=== PATIENT | male | born 1960 | race Caucasian/White ===

== ENCOUNTER 2018-04-27 10:38 | Day surgery (SDC) | payer MEDICARE ==
[2018-04-25 08:28] VITALS: BMI 44.3
[~2018-04-27 10:38] MED LIST: LACTATED RINGERS 1,000 ML IV SCH
[2018-04-27 11:28] VITALS: RESP 16; TEMP 97.2
[2018-04-27] MEDS ORDERED: LIDOCAINE 1% 20 ML VIAL (10MG/ML) FOR IV START INTRADERMA ONE (11:28)
[2018-04-27] MEDS ORDERED: LIDOCAINE 1% INJ 10MG/ML (20 ML MDV) ONE (12:01)
[2018-04-27] MEDS ORDERED: PROPOFOL 10 MG/ML 20 ML VIAL IV ONE (12:01)
--- NOTE | 2018-04-27 12:24 | P.PCN ---
Date of Procedure: 04/27/18 Procedure(s) Performed: Procedure: Total colonoscopy. Preoperative diagnosis: Screening for neoplasia. Postoperative diagnosis: Sigmoid diverticulosis with no evidence of acute diverticulitis, strictures, polyps or cancer. Preparation: HalfLytely prep. Sedation: Was provided by anesthesia. Brief clinical history: The patient is 58-year-old male who is scheduled for this evaluation for screening for neoplasia because of history of polyps in addition to age as risk factor. The patient's prior exam was in 2009. He has no abdominal complaints, bleeding or anemia. Procedure: With the patient on his left lateral decubitus position and after informed consent and adequate sedation, the perianal area was inspected and it did not show any fissures or fistulas. There were no masses felt on digital rectal examination. The Olympus CFQ 160L videocolonoscope was then inserted in the rectum in the usual fashion and advanced to the cecum. There were few diverticular orifices noted scattered in the sigmoid with no evidence of acute diverticulitis or strictures. No polyps or tumors were seen. I retroflexed the endoscope in the rectum before the endoscope was withdrawn. The patient tolerated the procedure well. Plan: The patient was reassured. Discussed dietary measures. He will follow up with you as planned and I recommended repeat exam in 5 years.
[2018-04-27 12:45] VITALS: BP 139/85; PULSE 89
== END 2018-04-27 13:24 | disposition home or self-care (01) ==
LOC: ORWHC2ENDO 10:38
DX: Z12.11 Encounter for screening for malignant neoplasm of colon (principal); K57.30 Diverticulosis of large intestine without perforation or abscess without bleeding; Z86.010 Personal history of colon polyps; L40.50 Arthropathic psoriasis, unspecified; I10 Essential (primary) hypertension; Z79.891 Long term (current) use of opiate analgesic; Z79.899 Other long term (current) drug therapy; Z88.2 Allergy status to sulfonamides; Z87.891 Personal history of nicotine dependence
CPT/HCPCS: J2001; J2704; G0105; 45378

== ENCOUNTER → 2022-12-22 | Outpatient (CLI) | payer MEDICARE ==
--- NOTE | 2022-12-22 20:02 | MR ---
EXAMINATION TYPE: MR lumbar spine wo con DATE OF EXAM: 12/22/2022 7:11 PM COMPARISON: None. CLINICAL INDICATION:Male, 62 years old with history of M54.50 LOW BACK PAIN; Low back pain into Rt si de but now starting in Lt TECHNIQUE: Multi planar, multi sequence imaging was performed utilizing: T1-weighted, T2-weighted, a nd turbo inversion recovery imaging of the lumbar spine. IV Contrast: None. FINDINGS: Alignment: The lumbar vertebral bodies have preserved heights and alignment. Cord: The conus medullaris and the distal spinal cord appear unremarkable with regards to their signa l intensity and morphology. Bones/Discs: Bone signal is within normal limits. No abnormal bony edema on inversion recovery sequen canelo. Multilevel degenerative disc disease is noted and most pronounced at the L4-L5 and L5-S1. There is disc desiccation at these levels. T12-L1: No evidence of significant spinal canal stenosis or neural foraminal stenosis. L1-L2: No evidence of significant spinal canal stenosis or neural foraminal stenosis. L2-L3: No evidence of significant spinal canal stenosis or neural foraminal stenosis. L3-L4: No evidence of significant spinal canal stenosis or neural foraminal stenosis. L4-L5: Disc bulge with suspected left disc protrusion which closely approximates the forming nerves i n the right series 601 image 9. Facet joint arthropathy result in mild spinal canal and mild to moder ate bilateral neural foraminal stenosis. L5-S1: The disc is rounded posterior morphology without significant spinal canal stenosis. Facet join t arthropathy with mild to moderate neural foraminal stenosis. Other findings: None. IMPRESSION: 1. L4-L5 disc protrusion with questionable disc herniation which closely approximates the forming ne rves at the level of L4-L5/exiting L5-S1 nerve. 2. Mild disc degeneration with associated osteoarthritic changes worse at L4-L5 and L5-S1
== END | disposition home or self-care (01) ==
LOC: RADMRIMAIN 18:19
PROVIDERS: ATTEND Internal Medicine
DX: M51.26 Other intervertebral disc displacement, lumbar region (principal); M99.73 Connective tissue and disc stenosis of intervertebral foramina of lumbar region; M51.36 Other intervertebral disc degeneration, lumbar region; M47.817 Spondylosis without myelopathy or radiculopathy, lumbosacral region
CPT/HCPCS: 72148